=== PATIENT | male | born 1985 | race Caucasian/White ===

== ENCOUNTER 2017-11-04 06:22 | Emergency (ER) | payer BC ==
[2017-11-04 06:33] VITALS: BP 124/87; PULSE 73; TEMP 98.4; BMI 29.1
--- NOTE | 2017-11-04 06:38 | PDOC ---
History of Present Illness - General Chief Complaint: Pain, Acute Stated Complaint: BROKEN LEFT GREAT TOE Time Seen by Provider: 11/04/17 06:38 History Source: Patient ( home) Exam Limitations: No Limitations - History of Present Illness Initial Comments: 11/04/17 06:44 This is a 32-year-old male comes in complaining of pain in his left great toe. Patient injured last night. Patient said when he walks it feels like there is something out of place. Patient otherwise denies any other injuries. PAST MEDICAL HISTORY: no significant history PAST SURGICAL HISTORY: no significant history FAMILY HISTORY: no pertinant history SOCIAL HISTORY: Pt lives with family and is employed. MEDICATIONS: reviewed ALLERGIES: As per nursing notes Review of Systems General: No fevers or chills, no weakness, no weight loss HEENT: No change in vision. No sore throat,. No ear pain CardioVascular: No chest pain or shortness of breath Respiratory:No cough, or wheezing. Gastrointestinal: no nausea, vomitting, diarrhea or constipation, No rectal bleeding Genitourinary: No dysuria, hematuria, or frequency Musculoskeletal: No joint or muscle pain or swelling Neurologic: No headache, vertigo, dizziness or loss of consciousness Psychiatric: nor depression Skin: No rashes or easy bruising Endocrine: no increased thirst or abnormal weight change Allergic: no skin or latex allergy All other systems reviewed and normal GENERAL: The patient is awake, alert, and fully oriented, in no acute distress. HEAD: Normal with no signs of trauma. EYES: Pupils equal, round and reactive to light, extraocular movements intact, sclera anicteric, conjunctiva clear. EXTREMITIES: Normal range of motion, no edema. NEUROLOGICAL: Normal speech, normal gait. grossly intact PSYCH: Normal mood, normal affect. SKIN: Warm, Dry, normal turgor, no rashes or lesions noted. 11/04/17 07:I X-ray left great toe fracture nondisplaced Occurred: reports: yesterday Past History - Past Medical History Allergies/Adverse Reactions: Allergies Allergy/AdvReac Type Severity Reaction Status Date / Time No Known Allergies Allergy Verified 11/04/17 06:25 Home Medications: Ambulatory Orders Clonazepam [Klonopin] 1 mg PO PRN 11/04/17 Dextroamphetamine/Amphetamine [Adderall 10 mg Tablet] 10 mg PO DAILY 11/04/17 COPD: No GI Disorders: Yes (GERD) Other medical history: ADHD - Surgical History Appendectomy: Yes - Suicide/Smoking/Psychosocial Hx Smoking History: Former smoker Have you smoked in the past 12 months: No Number of Cigarettes Smoked Daily: 1 If you are a former smoker, when did you quit?: 6 Information on smoking cessation initiated: No 'Breaking Loose' booklet given: 07/08/13 Hx Alcohol Use: Yes (OCCAS.) Drug/Substance Use Hx: No Substance Use Type: None *Physical Exam - Vital Signs Last Vital Signs Temp Pulse Resp BP Pulse Ox 98.4 F 73 16 124/87 97 11/04/17 06:28 11/04/17 06:28 11/04/17 06:28 11/04/17 06:28 11/04/17 06:28 *DC/Admit/Observation/Transfer Diagnosis at time of Disposition: FX TOE - Discharge Dispostion Disposition: HOME Condition at time of disposition: Stable Admit: No - Referrals Referrals: Damián Britton [Primary Care Provider] - - Patient Instructions Additional Instructions: Tylenol or Motrin as needed for the pain Tape the toe before going to work and retained. During the day if needed to help give it support. Return to the emergency department immediately with ANY new, persistent or worsening symptoms. Continue any medications as previously prescribed by your physician. You should follow up with your primary doctor as soon as possible regarding today's emergency department visit. . Please make sure your doctor reviews the results of your emergency evaluation. Thank you for coming to the Emergency Department today for your care. It was a pleasure to see you today. Please note that your evaluation is INCOMPLETE until you follow-up with your doctor. - Post Discharge Activity
[2017-11-04] MEDS ORDERED: IBUPROFEN 600 MG TABLET (FP) PO ONE ×2 (06:55→06:58)
== END 2017-11-04 07:03 | disposition home or self-care (01) ==
LOC: FER 06:22
DX: S92.402A Displaced unspecified fracture of left great toe, initial encounter for closed fracture (principal); X58.XXXA Exposure to other specified factors, initial encounter; Y93.9 Activity, unspecified; Y92.9 Unspecified place or not applicable; Z87.891 Personal history of nicotine dependence; K21.9 Gastro-esophageal reflux disease without esophagitis; F90.9 Attention-deficit hyperactivity disorder, unspecified type
CPT/HCPCS: 73660-TC-FY; 99281-25